=== PATIENT | male | born 1985 | race Caucasian/White ===

== ENCOUNTER → 2019-05-09 | Outpatient (CLI) | payer OTHER ==
--- NOTE | 2019-05-10 15:02 | PCVCIMAG ---
APPROVED REPORT Study performed: 05/09/2019 14:26:32 EXAM: Comprehensive 2D, Doppler, and color-flow Echocardiogram Patient Location: Echo lab Room #: 2Status: routine BSA: 2.33 HR: 73 bpmBP: 144/97 mmHg Rhythm: NSR Other Information Study Quality: Adequate Technically limited study due to pt has cerebral palsy and is in a motorized chair. Risk Factors: Cardiac Risk Factors: HTN Indications Hypertension/HDD Cerebral Palsy 2D Dimensions IVSd: 9.88 (7-11mm)LVOT Diam: 20.00 (18-24mm) LVDd: 48.99 mm PWd: 9.61 (7-11mm)Ascending Ao: 26.91 (22-36mm) LVDs: 32.84 (25-40mm) Left Atrium: 39.88 (27-40mm) Aortic Root: 27.58 mm LV Single Plane 4CH: 52.38 % LV Single Plane 2CH: 51.51 % Biplane EF: 52.6 % Volumes Left Atrial Volume (Systole) Single Plane 4CH: 15.21 mLSingle Plane 2CH: 26.88 mL LA ESV Index: 9.00 mL/m2 Aortic Valve AoV Peak Dean.: 1.03 m/s AO Peak Gr.: 4.27 mmHgLVOT Max P.21 mmHg LVOT Max V: 0.74 m/s ANNELIESE Vmax: 2.19 cm2 Mitral Valve E/A Ratio: 0.7 MV Decel. Time: 140.89 ms MV E Max Dean.: 0.57 m/s MV A Dean.: 0.77 m/s IVRT: 71.51 ms TDI E/Lateral E': 8.14E/Medial E': 7.13 Medial E' Dean.: 0.08 m/s Lateral E' Dean.: 0.07 m/s Pulmonary Valve PV Peak Daen.: 0.97 m/sPV Peak Gr.: 3.75 mmHg Left Ventricle The left ventricle is normal size. There is normal LV segmental wall motion. There is normal left ventricular wall thickness. Left ventricular systolic function is normal. The left ventricular ejection fraction is within the normal range. LVEF is 50-55%. Mild diastolic dysfunction is present (impaired relaxation pattern). Right Ventricle The right ventricle is normal size. The right ventricular systolic function is normal. Atria The left atrium size is normal. The right atrium size is normal. Aortic Valve The aortic valve is normal in structure. No aortic regurgitation is present. There is no aortic valvular stenosis. Mitral Valve The mitral valve is normal in structure. There is no mitral valve regurgitation noted. No evidence of mitral valve stenosis. Tricuspid Valve The tricuspid valve is normal in structure. There is no tricuspid valve regurgitation noted. Pulmonic Valve The pulmonary valve is normal in structure. There is no pulmonic valvular regurgitation. Great Vessels The aortic root is normal in size. The ascending aorta is normal in size. IVC is not visualized. Pericardium There is no pericardial effusion. <Conclusion> The left ventricle is normal size. LVEF is 50-55%. The aortic valve is normal in structure. The mitral valve is normal in structure. The tricuspid valve is normal in structure. The pulmonary valve is normal in structure. There is no pericardial effusion.
== END | disposition home or self-care (01) ==
LOC: PCVCIMAG 14:29
PROVIDERS: ATTEND Family Medicine
DX: I10 Essential (primary) hypertension (principal); G80.9 Cerebral palsy, unspecified
CPT/HCPCS: 93306